=== PATIENT | female | born 1975 | race Caucasian/White ===

== ENCOUNTER 2021-07-24 11:22 | Emergency (ER) | payer MEDICARE ==
[~2021-07-24] VITALS: Wt 74.8 kg
[2021-07-24] MEDS ORDERED: FLUOXETINE HCL10 MG PO (11:52)
[2021-07-24] MEDS ORDERED: PHARMASSURE FO0.8 MG PO (11:53)
[2021-07-24] MEDS ORDERED: PAXIL20 M1 PO (11:53)
[2021-07-24] MEDS ORDERED: RENVELA800 MG PO (11:53)
[2021-07-24 11:55] LABS: BASO % 0.5 % (0.0-1.0); EOS # 0.2 10*3/uL (0.0-0.4); EOS % 5.3 % (1.0-4.0); HEMATOCRIT 33.3 % (37.0-47.0); LYMPH % 26.2 % (27.0-41.0); MEAN CELL VOLUME 93.5 fl (81.0-99.0); MEAN CORPUSCULAR HGB 30.6 pg (27.0-31.0); MEAN CORPUSCULAR HGB CONC 32.7 g/dl (33.0-37.0); MONO # 0.3 10*3/uL (0.1-1.0); MONO % 7.4 % (3.0-9.0); NEUT # 2.4 10*3/uL (2.3-7.9); NEUT % 60.3 % (47.0-73.0); PLATELET COUNT AUTOMATED 247 10*3/uL (130-400); RED BLOOD COUNT 3.56 10*6/uL (4.10-5.10); RED CELL DISTRI WIDTH 13.6 % (0-14.5); WHITE BLOOD COUNT 3.9 10*3/uL (4.8-10.8)
[2021-07-24 12:06] LABS: ACT PARTIAL THROMBO TIME 27.6 SECONDS (20.0-32.1)
[2021-07-24 12:11] LABS: ALKALINE PHOSPHATASE 105 U/L (45-117); BUN 51 mg/dl (7-24); CHLORIDE 104 mmol/L (98-107); CPK 52 U/L (26-192); POTASSIUM 4.5 mmol/L (3.5-5.1); SGOT/AST 13 IU/L (3-35); SODIUM 138 mmol/L (136-145)
[2021-07-24 12:12] LABS: SGPT/ALT < 6 U/L (12-78)
[2021-07-24 12:26] LABS: BILIRUBIN Negative (Negative); BLOOD Negative (Negative); CLARITY Clear (Clear); COLOR Yellow (Yellow); GLUCOSE Negative (Negative); KETONE Negative (Negative); LEUKO ESTERASE Negative (Negative); NITRITE Negative (Negative); UROBILINOGEN 0.2 E.U./dl (0.0-1.0)
[2021-07-24 12:38] LABS: EPITHELIAL CELLS 0-2; URINE AMPHETAMINES < 1000 (1000ng/ml); URINE BARBITURATES < 200 (200ng/ml); URINE BENZODIAZEPINES < 200 (200ng/ml); URINE CANNABINOIDS (THC) < 50 (50ng/ml); URINE COCAINE < 300 (300ng/ml); URINE METHADONE < 300 (300ng/ml); URINE OPIATES > 300 (300ng/ml)
[2021-07-24 12:39] LABS: URINE PHENCYCLIDINE < 25 (25ng/ml)
== END 2021-07-24 16:00 | disposition short-term general hospital (02) ==
LOC: ED 11:22
PROVIDERS: Emergency Medicine
DX: T68.XXXA Hypothermia, initial encounter (principal); G93.40 Encephalopathy, unspecified; E11.649 Type 2 diabetes mellitus with hypoglycemia without coma; Z79.899 Other long term (current) drug therapy; Y92.89 Other specified places as the place of occurrence of the external cause

== ENCOUNTER → 2021-08-20 | Outpatient (CLI) | payer MEDICARE ==
[~2021-08-20] MED LIST: FLUOXETINE HCL10 MG PO; PAXIL20 M1 PO; PHARMASSURE FO0.8 MG PO; RENVELA800 MG PO
== END | disposition home or self-care (01) ==
LOC: RAD 11:08
PROVIDERS: ATTEND Family Medicine
DX: E10.3291 Type 1 diabetes mellitus with mild nonproliferative diabetic retinopathy without macular edema, right eye (principal); I12.9 Hypertensive chronic kidney disease with stage 1 through stage 4 chronic kidney disease, or unspecified chronic kidney disease; Z76.82 Awaiting organ transplant status; N18.6 End stage renal disease

== ENCOUNTER → 2021-09-07 | Outpatient (CLI) | payer MEDICARE | END | disposition home or self-care (01) | LOC: CT 12:46 | PROVIDERS: ATTEND Family Medicine | DX: R91.1 Solitary pulmonary nodule (principal); I25.10 Atherosclerotic heart disease of native coronary artery without angina pectoris; R18.8 Other ascites ==

== ENCOUNTER → 2021-09-20 | Outpatient (CLI) | payer MEDICARE | END | disposition home or self-care (01) | LOC: CARD 02:03 | PROVIDERS: ATTEND Family Medicine | DX: I08.3 Combined rheumatic disorders of mitral, aortic and tricuspid valves (principal); I12.0 Hypertensive chronic kidney disease with stage 5 chronic kidney disease or end stage renal disease; N18.6 End stage renal disease; E10.3291 Type 1 diabetes mellitus with mild nonproliferative diabetic retinopathy without macular edema, right eye ==

== ENCOUNTER 2021-11-25 20:00 | Emergency (ER) | payer MEDICARE ==
[~2021-11-25] VITALS: Ht 172.7 cm; Wt 67.6 kg
[2021-11-25 20:50] LABS: HEMATOCRIT 31.2 % (37.0-47.0); MANUAL DIFF REFLEX YES; MEAN CELL VOLUME 102.6 fl (81.0-99.0); MEAN CORPUSCULAR HGB 31.6 pg (27.0-31.0); MEAN CORPUSCULAR HGB CONC 30.8 g/dl (33.0-37.0); MEAN PLATELET VOLUME 10.6 fl (9.6-12.3); PLATELET COUNT AUTOMATED 247 10*3/uL (130-400); RED BLOOD COUNT 3.04 10*6/uL (4.10-5.10); RED CELL DISTRI WIDTH 14.2 % (0-14.5); WHITE BLOOD COUNT 15.5 10*3/uL (4.8-10.8)
[2021-11-25 21:06] LABS: CREATININE 11.2 mg/dL (0.55-1.02); POTASSIUM 5.5 mmol/L (3.5-5.1)
[2021-11-25 21:20] LABS: BURR CELLS FEW; PLATELET SUFFICIENCY NORMAL (NORMAL); TOTAL CELLS COUNTED 100 #CELLS
[2021-11-26 00:05] LABS: VENOUS PH 7.177 (7.37-7.45)
== END 2021-11-26 00:35 | disposition short-term general hospital (02) ==
LOC: ED 20:00
PROVIDERS: Emergency Medicine
DX: E11.10 Type 2 diabetes mellitus with ketoacidosis without coma (principal); Z20.822 Contact with and (suspected) exposure to COVID-19; N17.9 Acute kidney failure, unspecified; K92.2 Gastrointestinal hemorrhage, unspecified; E87.1 Hypo-osmolality and hyponatremia; E11.9 Type 2 diabetes mellitus without complications; Z88.8 Allergy status to other drugs, medicaments and biological substances; Z79.899 Other long term (current) drug therapy

== ENCOUNTER → 2022-01-02 | Outpatient (CLI) | payer MEDICARE ==
[~2022-01-02] MED LIST changes: +AMLODIPINE BESY10 MG PO; +INSULIN LI100 UNIT/2 SQ; +LANTUS SOL100 UNIT/1 SC; +LOSARTAN POTAS100 M1 PO; +METOPROLOL SUC100 M1 PO; +MONTELUKAST SOD10 MG PO; +PANTOPRAZOLE SO40 MG PO; +TORSEMIDE20 MG PO; +VELTASSA16.8 GM PO; +WELLBUTRIN SR100 MG PO
== END ==
LOC: MAMMO 13:05
PROVIDERS: ATTEND Emergency Medicine
DX: Z12.31 Encounter for screening mammogram for malignant neoplasm of breast (principal)

== ENCOUNTER 2022-01-19 14:25 | Emergency (ER) | payer MEDICARE ==
[~2022-01-19] VITALS: Ht 172.7 cm; Wt 70.3 kg
[2022-01-19] MEDS ORDERED: HYDROCODONE-AC1 EAC1 PO (16:35)
== END 2022-01-19 16:46 | disposition home or self-care (01) ==
LOC: ED 14:25
DX: S96.912A Strain of unspecified muscle and tendon at ankle and foot level, left foot, initial encounter (principal); S80.02XA Contusion of left knee, initial encounter; Z88.8 Allergy status to other drugs, medicaments and biological substances; Z79.899 Other long term (current) drug therapy; W18.39XA Other fall on same level, initial encounter; Y93.89 Activity, other specified; Y92.89 Other specified places as the place of occurrence of the external cause; Y99.8 Other external cause status

== ENCOUNTER 2022-01-21 14:46 | Emergency (ER) | payer MEDICARE ==
[~2022-01-21] VITALS: Wt 71.2 kg
[~2022-01-21 14:46] MED LIST changes: +HYDROCODONE-AC1 EAC1 PO
[2022-01-21 15:38] LABS: BILIRUBIN Negative (Negative); BLOOD Negative (Negative); CLARITY Clear (Clear); COLOR Yellow (Yellow); GLUCOSE 3+ (Negative); KETONE Trace (Negative); LEUKO ESTERASE Negative (Negative); NITRITE Negative (Negative); SPECIFIC GRAVITY 1.015 (1.001-1.030); UROBILINOGEN 0.2 E.U./dl (0.0-1.0)
[2022-01-21 15:45] LABS: BACTERIA 1+; WBC 0-2 wbc/hpf (0-5)
[2022-01-21 16:20] LABS: HEMATOCRIT 36.6 % (37.0-47.0); MEAN CELL VOLUME 96.8 fl (81.0-99.0); MEAN CORPUSCULAR HGB 30.7 pg (27.0-31.0); MEAN CORPUSCULAR HGB CONC 31.7 g/dl (33.0-37.0); MEAN PLATELET VOLUME 11.1 fl (9.6-12.3); PLATELET COUNT AUTOMATED 246 10*3/uL (130-400); RED BLOOD COUNT 3.78 10*6/uL (4.10-5.10); RED CELL DISTRI WIDTH 13.4 % (0-14.5); WHITE BLOOD COUNT 10.9 10*3/uL (4.8-10.8)
[2022-01-21 16:21] LABS: MANUAL DIFF REFLEX YES
[2022-01-21 16:36] LABS: ALKALINE PHOSPHATASE 139 U/L (45-117); BETA-HCG, QUANT < 1.0 mIU/mL (1-3); BUN 85 mg/dl (7-24); CHLORIDE 104 mmol/L (98-107); LIPASE 82 U/L (73-393); SGOT/AST 7 IU/L (3-35); SGPT/ALT 19 U/L (12-78); SODIUM 140 mmol/L (136-145); TOTAL PROTEIN 6.8 gm/dL (6.4-8.2)
[2022-01-21 16:59] LABS: BURR CELLS FEW; PLATELET SUFFICIENCY NORMAL (NORMAL); POLYCHROMASIA SLIGHT; TOTAL CELLS COUNTED 100 #CELLS; TOXIC GRANULATION SLIGHT
== END 2022-01-21 18:45 | disposition short-term general hospital (02) ==
LOC: ED 14:46
PROVIDERS: Emergency Medicine
DX: K92.2 Gastrointestinal hemorrhage, unspecified (principal); E11.10 Type 2 diabetes mellitus with ketoacidosis without coma; Z88.8 Allergy status to other drugs, medicaments and biological substances; Z79.899 Other long term (current) drug therapy

== ENCOUNTER → 2022-02-19 | Outpatient (CLI) | payer MEDICARE | END | disposition home or self-care (01) | LOC: RAD 12:50 | PROVIDERS: ATTEND Physician Assistant Surgical | DX: J90 Pleural effusion, not elsewhere classified (principal); I51.7 Cardiomegaly; J98.11 Atelectasis ==

== ENCOUNTER 2022-04-22 13:15 | Emergency (ER) | payer MEDICARE ==
[~2022-04-22] VITALS: Ht 172.7 cm; Wt 64.0 kg
[2022-04-22 13:27] VITALS: BP 113/57
[2022-04-22 14:18] LABS: BASO # 0.1 10*3/uL (0.0-0.1); BASO % 0.4 % (0.0-1.0); EOS # 0.2 10*3/uL (0.0-0.4); EOS % 1.6 % (1.0-4.0); HEMATOCRIT 39.5 % (37.0-47.0); LYMPH # 1.3 10*3/uL (1.3-4.4); LYMPH % 10.6 % (27.0-41.0); MEAN CELL VOLUME 99.7 fl (81.0-99.0); MEAN CORPUSCULAR HGB 30.6 pg (27.0-31.0); MEAN CORPUSCULAR HGB CONC 30.6 g/dl (33.0-37.0); MONO # 1.2 10*3/uL (0.1-1.0); MONO % 10.3 % (3.0-9.0); NEUT # 9.2 10*3/uL (2.3-7.9); NEUT % 76.8 % (47.0-73.0); PLATELET COUNT AUTOMATED 349 10*3/uL (130-400); RED BLOOD COUNT 3.96 10*6/uL (4.10-5.10); RED CELL DISTRI WIDTH 15.7 % (0-14.5)
[2022-04-22 14:42] LABS: POTASSIUM 3.2 mmol/L (3.4-5.1)
[2022-04-22 17:38] VITALS: BP 147/83
== END 2022-04-22 19:54 | disposition short-term general hospital (02) ==
LOC: ED 13:15 → EDHOLD 15:43 → ED 15:43
PROVIDERS: Internal Medicine
DX: R55 Syncope and collapse (principal); Z88.8 Allergy status to other drugs, medicaments and biological substances; Z98.890 Other specified postprocedural states

== ENCOUNTER 2022-05-08 10:14 | Emergency (ER) | payer MEDICARE ==
[2022-05-08 11:29] LABS: ACT PARTIAL THROMBO TIME 27.9 SECONDS (20.0-32.1); INTERNATIONAL NORM RATIO 1.1 (2.0-3.5)
[2022-05-08 11:37] LABS: BASO # 0.1 10*3/uL (0.0-0.1); BASO % 0.5 % (0.0-1.0); EOS # 0.4 10*3/uL (0.0-0.4); EOS % 3.6 % (1.0-4.0); HEMATOCRIT 33.8 % (37.0-47.0); LYMPH # 1.2 10*3/uL (1.3-4.4); LYMPH % 10.8 % (27.0-41.0); MEAN CORPUSCULAR HGB 30.8 pg (27.0-31.0); MEAN CORPUSCULAR HGB CONC 30.8 g/dl (33.0-37.0); MEAN PLATELET VOLUME 10.4 fl (9.6-12.3); MONO # 1.1 10*3/uL (0.1-1.0); MONO % 10.1 % (3.0-9.0); NEUT # 8.1 10*3/uL (2.3-7.9); NEUT % 74.7 % (47.0-73.0); PLATELET COUNT AUTOMATED 344 10*3/uL (130-400); RED BLOOD COUNT 3.38 10*6/uL (4.10-5.10); RED CELL DISTRI WIDTH 15.6 % (0-14.5); WHITE BLOOD COUNT 10.9 10*3/uL (4.8-10.8)
[2022-05-08 11:49] LABS: TOTAL PROTEIN 5.8 gm/dL (6.0-8.0)
== END 2022-05-08 17:11 | disposition short-term general hospital (02) ==
LOC: ED 10:14
PROVIDERS: Emergency Medicine
DX: R19.7 Diarrhea, unspecified (principal); R11.2 Nausea with vomiting, unspecified; I95.9 Hypotension, unspecified; E11.9 Type 2 diabetes mellitus without complications; I10 Essential (primary) hypertension; Z88.8 Allergy status to other drugs, medicaments and biological substances; Z79.899 Other long term (current) drug therapy

== ENCOUNTER 2022-08-24 18:49 | Emergency (ER) | payer MEDICARE, MEDICAID ==
[~2022-08-24] VITALS: Ht 172.7 cm; Wt 65.8 kg
[2022-08-24] MEDS ORDERED: GABAPENTIN100 M2 PO (19:00)
[2022-08-24] MEDS ORDERED: 'CLONIDINE0.1 MG PO (19:01)
[2022-08-24] MEDS ORDERED: EFFER-K25 MEQ PO (19:01)
[2022-08-24] MEDS ORDERED: LEVOTHYROXINE50 MCG PO (19:01)
[2022-08-24] MEDS ORDERED: CALCITRIOL0.5 MCG PO (19:01)
== END 2022-08-24 20:45 | disposition home or self-care (01) ==
LOC: ED 18:49
DX: M25.552 Pain in left hip (principal); R42 Dizziness and giddiness; R10.2 Pelvic and perineal pain; E11.9 Type 2 diabetes mellitus without complications; I10 Essential (primary) hypertension; Z88.8 Allergy status to other drugs, medicaments and biological substances; Z98.890 Other specified postprocedural states